=== PATIENT | female | born 1955 | race Caucasian/White ===

== ENCOUNTER 2016-11-29 13:49 | Inpatient (IN) | payer MEDICAID ==
[~2016-11-29] VITALS: Ht 167.6 cm; Wt 69.9 kg
[~2016-11-29 13:49] MED LIST: ALPR0.25 PO; LIPA1CAP61 PO; MULT-658 PO; OXYC5CAP4 PO; PANT20TA2 PO
[2016-11-29] MEDS ORDERED: LORazepam 2 MG/ML, 1ML IVPush ONE (14:30)
[2016-11-29] MEDS ORDERED: SODIUM CHLORIDE FLUSH 10ML SYR IVF ONE (14:30)
[2016-11-29] MEDS ORDERED: LORazepam 2 MG/ML, 1ML ONE (15:05)
[2016-11-29] MEDS ORDERED: FLUO20CA8 PO (15:12)
[2016-11-29 15:13] LABS: ASPARTATE AMINO TRANSFERASE 26 U/L (15-37); BLOOD UREA NITROGEN 5 mg/dL (7-18)
[2016-11-29 15:19] LABS: ACETAMINOPHEN < 2 mcg/mL (10-30); IS PT STATUS REG ER OR PRE ER? YES
[2016-11-29 15:29] LABS: DAU SCREEN DISCLAIMER
[2016-11-29] MEDS ORDERED: CHLORDIAZEPOXIDE 25 MG CAPSULE PO STA (17:42)
[2016-11-29] MEDS ORDERED: ACETAMINOPHEN 325 MG TABLET PO PRN (20:00)
[2016-11-29] MEDS ORDERED: DOCUSATE 100 MG CAPSULE PO PRN (20:00)
[2016-11-29] MEDS ORDERED: LORazepam 2 MG/ML, 1ML IVPush PRN (20:00)
[2016-11-29] MEDS ORDERED: POLYETHYLENE GLYCOL 17 GM PACKET PO PRN (20:00)
[2016-11-29] MEDS ORDERED: LABETALOL 5MG/ML, 20ML IVPush PRN (20:00)
[2016-11-29] MEDS ORDERED: BISACODYL 10 MG SUPP PR PRN (20:00)
[2016-11-29] MEDS ORDERED: ONDANSETRON ODT 4 MG PO PRN (20:00)
[2016-11-29] MEDS ORDERED: cloniDINE 0.1MG PATCH TD SCH (20:00)
[2016-11-29 22:04] VITALS: BP 101/68
[2016-11-29 23:51] VITALS: BP 93/55
[2016-11-30] MEDS: ENOXAPARIN 40 MG/0.4 ML SQ SCH ×2 (00:33→21:05)
[2016-11-30] MEDS: VALPROIC ACID 250 MG CAPSULE PO SCH ×4 (00:33→21:04)
[2016-11-30] MEDS: GABAPENTIN 100 MG CAPSULE PO SCH ×4 (00:33→21:04)
[2016-11-30] MEDS: THIAMINE 100 MG, MVI ADULT 10 ML, FOLIC ACID 1 MG in D5%-0.9% NACL 1,000 ML IV SCH (00:35)
[2016-11-30] MEDS: TRAZODONE 50MG TABLET PO PRN ×2 (01:19→22:51)
[2016-11-30 02:55] VITALS: BP 97/63
[2016-11-30 05:35] LABS: ASPARTATE AMINO TRANSFERASE 16 U/L (15-37); BLOOD UREA NITROGEN 14 mg/dL (7-18)
[2016-11-30] MEDS: OMEPRAZOLE 20 MG CAPSULE.DR PO SCH (08:24)
[2016-11-30] MEDS: FOLIC ACID 1 MG TABLET PO SCH (08:24)
[2016-11-30] MEDS: THIAMINE 100MG TABLET PO SCH (08:24)
[2016-11-30 08:30] VITALS: BP 107/69
[2016-11-30] MEDS ORDERED: DIAZEPAM 5 MG/ML, 2ML IV PRN (11:30)
[2016-11-30 14:00] VITALS: BP 109/74
[2016-11-30] MEDS ORDERED: OMNIPAQUE 350 MG/ML, 100ML BOTTLE ONE (17:24)
[2016-11-30 18:48] VITALS: BP 117/75
[2016-12-01] MEDS: THIAMINE 100 MG, MVI ADULT 10 ML, FOLIC ACID 1 MG in D5%-0.9% NACL 1,000 ML IV SCH (00:20)
[2016-12-01 01:01] VITALS: BP 99/57
[2016-12-01 07:14] VITALS: BP 106/66
[2016-12-01] MEDS ORDERED: DIAZEPAM 5 MG TABLET ONE (08:07)
[2016-12-01] MEDS: FOLIC ACID 1 MG TABLET PO SCH (08:12)
[2016-12-01] MEDS: THIAMINE 100MG TABLET PO SCH (08:12)
[2016-12-01] MEDS: GABAPENTIN 100 MG CAPSULE PO SCH ×2 (08:12→20:24)
[2016-12-01] MEDS: DIAZEPAM 5 MG TABLET PO PRN ×3 (08:13→22:33)
[2016-12-01] MEDS: OMEPRAZOLE 20 MG CAPSULE.DR PO SCH (08:13)
[2016-12-01] MEDS: VALPROIC ACID 250 MG CAPSULE PO SCH ×2 (08:13→20:24)
[2016-12-01 08:45] LABS: ASPARTATE AMINO TRANSFERASE 11 U/L (15-37); BLOOD UREA NITROGEN 4 mg/dL (7-18)
[2016-12-01] MEDS: FLUOXETINE 20 MG CAPSULE PO SCH (09:00)
[2016-12-01 13:06] VITALS: BP 116/76
[2016-12-01 19:53] VITALS: BP 101/61
[2016-12-01] MEDS: ENOXAPARIN 40 MG/0.4 ML SQ SCH (20:24)
[2016-12-01] MEDS: TRAZODONE 50MG TABLET PO PRN (22:33)
[2016-12-02 07:38] VITALS: BP 117/78
[2016-12-02] MEDS: OMEPRAZOLE 20 MG CAPSULE.DR PO SCH (07:54)
[2016-12-02] MEDS: GABAPENTIN 100 MG CAPSULE PO SCH (09:00)
[2016-12-02] MEDS: THIAMINE 100MG TABLET PO SCH (09:06)
[2016-12-02] MEDS: VALPROIC ACID 250 MG CAPSULE PO SCH (09:07)
[2016-12-02] MEDS: FOLIC ACID 1 MG TABLET PO SCH (09:07)
[2016-12-02] MEDS: FLUOXETINE 20 MG CAPSULE PO SCH (09:16)
[2016-12-02] MEDS: DIAZEPAM 5 MG TABLET PO PRN (09:16)
== END 2016-12-02 11:00 | DRG 897 ==
LOC: ED 15:13 → EDIP 19:50 → 4WST 21:20 → 3E 12-01 12:18
PROVIDERS: ADMIT Internal Medicine; ATTEND Internal Medicine
DX: F10.239 Alcohol dependence with withdrawal, unspecified (principal); R45.851 Suicidal ideations; K86.0 Alcohol-induced chronic pancreatitis; F33.9 Major depressive disorder, recurrent, unspecified; B96.81 Helicobacter pylori [H. pylori] as the cause of diseases classified elsewhere; F12.90 Cannabis use, unspecified, uncomplicated; F41.9 Anxiety disorder, unspecified; K21.9 Gastro-esophageal reflux disease without esophagitis; Z63.4 Disappearance and death of family member; Z88.5 Allergy status to narcotic agent; Z81.1 Family history of alcohol abuse and dependence; Z80.42 Family history of malignant neoplasm of prostate; Z82.49 Family history of ischemic heart disease and other diseases of the circulatory system; R56.9 Unspecified convulsions
CPT/HCPCS: 36415; 70450; 71010; 74178; 76700; 80053; 80307; 80329; 82140; 83605; 83690; 83735; 84439; 84443; 84484; 85025; 85610; 93005; 96374; 96375; J1650; J3360; J3411; J7042; Q9967; G0480; J2060